=== PATIENT | female | born 1990 | race Caucasian/White ===

== ENCOUNTER 2016-09-27 08:43 | Emergency (ER) | payer OTHER, BC ==
[2016-09-27 08:58] VITALS: BMI 29.5
[2016-09-27] MEDS ORDERED: ONDANSETRON HCL 4 MG/2 ML VIAL IV ONE (09:00)
[2016-09-27] MEDS ORDERED: NS 1,000 ML IV ONE ×2 (09:00→11:19)
[2016-09-27] MEDS ORDERED: MORPHINE 4 MG/ML INJECTION IV ONE (09:00)
[2016-09-27 09:42] LABS: BLOOD UREA NITROGEN 13 MG/DL (7-17); CALCIUM 9.2 MG/DL (8.4-10.2); CALCULATED OSMOLALITY 276 MOs/Kg (270-290); CHLORIDE 107 mEq/L (98-107); GLUCOSE 119 MG/DL (70-99); SODIUM LEVEL 143 mEq/L (137-146); TOTAL PROTEIN 7.6 G/DL (6.3-8.2)
[2016-09-27 09:54] LABS: LEUKOCYTES/URINE NEG (NEGATIVE); NITRITE/URINE NEG (NEGATIVE); RBC/URINE 0-2 (0-5); URINE OCCULT BLOOD NEG (NEG/TRACE); WBC/URINE 0-2 (0-5)
[2016-09-27 09:54] LABS: SEG NEUTROPHIL 86 % (45-76)
--- NOTE | 2016-09-27 10:31 | EDPRACDOC ---
- General Information Chief Complaint: Flu-Like Symptoms Stated Complaint: DIARRHEA/ VOMITING Time Seen by Provider: 09/27/16 08:47 Information Source: Patient Mode Of Arrival: Car Home Medications: Home Medications HydrOXYzine HCl (Antihistamine [Atarax] 12.5 - 50 mg PO HS PRN 04/23/16 Lamotrigine [Lamictal] 200 mg PO DAILY 04/23/16 Sertraline HCl [Zoloft] 150 mg PO DAILY 04/23/16 Ciprofloxacin HCl [Cipro] 500 mg PO BID #20 tab 09/27/16 Ondansetron [Zofran Odt] 4 mg PO Q6H PRN #20 tab.rapdis 09/27/16 Oxycodone Immediate Release [Oxycodone Immediate Release (OxyIR)] 5 mg PO Q6H PRN #20 tab 09/27/16 Allergies/Adverse Reactions: Allergies Allergy/AdvReac Type Severity Reaction Status Date / Time cefazolin sodium [From Anc] Allergy Rash-Genera Verified 09/27/16 09:14 lized codeine Allergy See Verified 09/27/16 09:14 Comments erythromycin base Allergy See Verified 09/27/16 09:14 Comments - History of Present Illness Onset: 4 days HPI: PT PRESENTS WITH NAUSEA, VOMITING AND DIARRHEA FOR THE PAST 24 HOURS, STATES BEFORE THIS SHE HAD COUGH, NASAL SYMPTOMS AND FEVER. Symptoms Occured: Reports: Spontaneous Duration: Reports: Intermittent Emesis: Reports: Bilious Recent: Reports: Contact Exposure Pain Quality: Reports: Aching, Cramping Pain Severity: Moderate Pain Location: Reports: Diffuse : No History of: Reports: UTI Relevant History of: Denies: Abdominal Surgery, Diabetes, Contact Exposure, Hydrocephalus, HIV, Immunosuppression, Irritable Bowel Disease, Cystic Fibrosis , Lactose Intolerance, None, O Associated Signs & Symptoms: Reports: Nausea, Vomiting, Diarrhea Oral Intake: Decreased Urinary Output: Normal ED Past Medical History - History Reviewed Yes Nurses notes reviewed and agree except as marked - Patient Medical History GI/ History: Reports: Urinary Tract Infection, Kidney Stones Psychological History: Reports: Depression, Bipolar Disorder (BIPOLAR II) Surgical History: Reports: Appendectomy - Family Medical History Reports: Hypertension (MOTHER), Diabetes (MATERNAL GRANDFATHER), Cancer (FATHER) , Stroke (PATERNAL GRANDMOTHER). Denies: Cardiac Disorders - Social Medical History Smoking Status: Never smoker EDM Review of Systems - Review of Systems ROS Negative Except as Marked: Yes All systems reviewed and were negative except as marked - Physical Exam Constitutional: Alert. negative: Well appearing Oriented to: Time, Person, Place Last recorded Vital Signs: Last Vital Signs Temp 98.4 F 09/27/16 08:52 Pulse 116 09/27/16 08:52 Resp 18 09/27/16 08:52 BP 139/74 09/27/16 08:52 Pulse Ox 95 09/27/16 08:52 Oxygen Pulse Oxygen Saturation 95 O2 Device Room Air Oxygen Flow Rate Fraction of Inspired Oxygen ( FIO2) - HEENT Head: Normal ( normocephalic) Eye Exam: Pale Conjunctiva Oropharynx: Membranes Dry Tympanic Membrane: Normal Nose: No Symptoms Reported (septum midline) Neck: Normal (FROM, trachea at midline) - Respiratory/Cardiovascular Respiratory: Normal - CTA (BBS clear to auscultation without adventitious sounds ) Cardiovascular: Tachycardia - GI Auscultation: Normal (NABS) Palpation: Normal (Soft,No rebound or guarding, non distended) Tenderness: Diffuse, Mild Becker's Sign: Negative Rectal Exam: Deferred - Musculoskeletal Back: Normal (Non-Tender) Extremities: Normal (Normal tone, Pulses 2+ No cyanosis or edema, FROM) - Integumentary Skin: Normal, Warm, Dry Lymphatics: Normal (no adenopathy) - Neurologic Memory Impaired: Normal Motor Function: Normal (Normal tone, Pulses 2+ No cyanosis or edema, FROM) Cranial Nerve: Normal (CN II-X11 intact sensation, strength 5/5) Cerebellar: Normal Mood Description: Normal Perception: Normal - Differential Diagnosis Diarrhea Viral, Gastroenteritis - Results 09/27/16 09:15 09/27/16 09:15 WBC 20.9 xk/uL (3.8-10.8) H 09/27/16 09:15 RBC 5.52 xM/uL (4.20-5.40) H 09/27/16 09:15 Hgb 15.7 g/dL (12.0-16.0) 09/27/16 09:15 Hct 46.2 % (36-47) 09/27/16 09:15 MCV 84 fL (81-99) 09/27/16 09:15 MCH 28.4 pg (27-32) 09/27/16 09:15 MCHC 33.9 g/dl (33-36) 09/27/16 09:15 RDW 13.4 % (11.5-14.5) 09/27/16 09:15 Plt Count 334 xk/uL (130-400) 09/27/16 09:15 MPV 6.0 fL (7.4-10.4) L 09/27/16 09:15 Neut % (Auto) Cancelled 09/27/16 09:15 Lymph % (Auto) Cancelled 09/27/16 09:15 [place] % (Auto) Cancelled 09/27/16 09:15 Eos % (Auto) Cancelled 09/27/16 09:15 Baso % (Auto) Cancelled 09/27/16 09:15 Absolute Neuts (auto) Cancelled 09/27/16 09:15 Absolute Lymphs (auto) Cancelled 09/27/16 09:15 Seg Neuts % (Manual) 86 % (45-76) H 09/27/16 09:15 Band Neutrophils % 5 % (0-5) 09/27/16 09:15 Lymphocytes % (Manual) 5 % (17-44) L 09/27/16 09:15 Monocytes % (Manual) 4 % (0-10) 09/27/16 09:15 Absolute Neutrophils 19.02 xk/uL (1.7-8.2) H 09/27/16 09:15 Absolute Lymphocytes 1.05 xk/uL (0.65-4.75) 09/27/16 09:15 Platelet Estimate Norm (NORMAL) 09/27/16 09:15 RBC Morphology 1+ poik 1+ teardrop 09/27/16 09:15 RBC Morphology 1+ poik 1+ teardrop 09/27/16 09:15 Sodium 143 mEq/L (137-146) 09/27/16 09:15 Potassium 4.2 mEq/L (3.5-5.1) 09/27/16 09:15 Chloride 107 mEq/L (98-107) 09/27/16 09:15 Carbon Dioxide 21 mMOL/L (22-33) L 09/27/16 09:15 Anion Gap 19 mEq/L (8-16) H 09/27/16 09:15 BUN 13 MG/DL (7-17) 09/27/16 09:15 Creatinine 0.50 MG/DL (0.52-1.04) L 09/27/16 09:15 Estimated GFR (MDRD) > 60 mL/min (>=60) 09/27/16 09:15 Glucose 119 MG/DL (70-99) H 09/27/16 09:15 Calculated Osmolality 276 MOs/Kg (270-290) 09/27/16 09:15 Calcium 9.2 MG/DL (8.4-10.2) 09/27/16 09:15 Total Bilirubin 0.5 MG/DL (0.2-1.3) 09/27/16 09:15 AST 39 IU/L (14-36) H 09/27/16 09:15 ALT 33 IU/L (9-52) 09/27/16 09:15 Alkaline Phosphatase 103 IU/L (38-126) 09/27/16 09:15 Total Protein 7.6 G/DL (6.3-8.2) 09/27/16 09:15 Albumin 4.1 G/DL (3.5-5.0) 09/27/16 09:15 Lipase 34 U/L (23-300) 09/27/16 09:15 Urine Color Yellow 09/27/16 09:30 Urine Clarity Clear 09/27/16 09:30 Urine pH 5.0 (5.0-8.0) 09/27/16 09:30 Ur Specific [place] 1.005 (1.003-1.035) 09/27/16 09:30 Urine Protein Neg (NEG/TRACE) 09/27/16 09:30 Urine Glucose (UA) Neg (NEGATIVE) 09/27/16 09:30 Urine Ketones Neg (NEGATIVE) 09/27/16 09:30 Urine Occult Blood Neg (NEG/TRACE) 09/27/16 09:30 Urine Nitrite Neg (NEGATIVE) 09/27/16 09:30 Urine Bilirubin Neg (NEGATIVE) 09/27/16 09:30 Urine Urobilinogen <2.0 MG/DL (0-1) 09/27/16 09:30 Ur Leukocyte Esterase Neg (NEGATIVE) 09/27/16 09:30 Urine RBC 0-2 (0-5) 09/27/16 09:30 Urine WBC 0-2 (0-5) 09/27/16 09:30 Ur Epithelial Cells 1+ 09/27/16 09:30 Urine Bacteria Few (NEG/FEW) 09/27/16 09:30 Urine Mucus Sm amt (NEG/OCC) 09/27/16 09:30 Urine Test Neg (NEGATIVE) 09/27/16 09:30 Microbiology 09/27/16 09:15 Influenza Type A Antigen Screen - Final N/P - Naso/Pharyngeal NEGATIVE Please note: A NEGATIVE result does not exclude an influenza virus infection. It is a presumptive result and, if required, confirmation should be done using either a virus culture or an FDA-cleared influenza A&B molecular assay. ("NORMAL" value = "NEGATIVE".) Influenza Type B Antigen Screen - Final NEGATIVE Please note: A NEGATIVE result does not exclude an influenza virus infection. It is a presumptive result and, if required, confirmation should be done using either a virus culture or an FDA-cleared influenza A&B molecular assay. ("NORMAL" value = "NEGATIVE".) Lab Results 09/27/16 09/27/16 09/27/16 09:30 09:30 09:15 WBC RBC Hgb Hct MCV MCH MCHC RDW Plt Count MPV Neut % (Auto) Lymph % (Auto) [place] % (Auto) Eos % (Auto) Baso % (Auto) Absolute Neuts (auto) Absolute Lymphs (auto) Seg Neuts % (Manual) Band Neutrophils % Lymphocytes % (Manual) Monocytes % (Manual) Absolute Neutrophils Absolute Lymphocytes Platelet Estimate RBC Morphology Sodium 143 Potassium 4.2 Chloride 107 Carbon Dioxide 21 L Anion Gap 19 H BUN 13 Creatinine 0.50 L Estimated GFR (MDRD) > 60 Glucose 119 H Calculated Osmolality 276 Calcium 9.2 Total Bilirubin 0.5 AST 39 H ALT 33 Alkaline Phosphatase 103 Total Protein 7.6 Albumin 4.1 Lipase 34 Urine Color Yellow Urine Clarity Clear Urine pH 5.0 Ur Specific [place] 1.005 Urine Protein Neg Urine Glucose (UA) Neg Urine Ketones Neg Urine Occult Blood Neg Urine Nitrite Neg Urine Bilirubin Neg Urine Urobilinogen <2.0 Ur Leukocyte Esterase Neg Urine RBC 0-2 Urine WBC 0-2 Ur Epithelial Cells 1+ Urine Bacteria Few Urine Mucus Sm amt Urine Test Neg 09/27/16 09:15 WBC 20.9 H RBC 5.52 H Hgb 15.7 Hct 46.2 MCV 84 MCH 28.4 MCHC 33.9 RDW 13.4 Plt Count 334 MPV 6.0 L Neut % (Auto) Cancelled Lymph % (Auto) Cancelled [place] % (Auto) Cancelled Eos % (Auto) Cancelled Baso % (Auto) Cancelled Absolute Neuts (auto) Cancelled Absolute Lymphs (auto) Cancelled Seg Neuts % (Manual) 86 H Band Neutrophils % 5 Lymphocytes % (Manual) 5 L Monocytes % (Manual) 4 Absolute Neutrophils 19.02 H Absolute Lymphocytes 1.05 Platelet Estimate Norm RBC Morphology 1+ teardrop Sodium Potassium Chloride Carbon Dioxide Anion Gap BUN Creatinine Estimated GFR (MDRD) Glucose Calculated Osmolality Calcium Total Bilirubin AST ALT Alkaline Phosphatase Total Protein Albumin Lipase Urine Color Urine Clarity Urine pH Ur Specific [place] Urine Protein Urine Glucose (UA) Urine Ketones Urine Occult Blood Urine Nitrite Urine Bilirubin Urine Urobilinogen Ur Leukocyte Esterase Urine RBC Urine WBC Ur Epithelial Cells Urine Bacteria Urine Mucus Urine Test Decision Time to Discharge: 11:42 - Departure Disposition: Home Condition: Stable Final Diagnosis: Acute bronchitis Nausea & vomiting Qualifiers: Vomiting type: unspecified Vomiting Intractability: intractable Qualified Code( s): R11.2 - Nausea with vomiting, unspecified Instructions: Acute Bronchitis (ED), Acute Nausea and Vomiting (ED) Education/Counseling Given To: Patient Education/Counseling Given Regarding: Diagnosis, Treatment, Prognosis, Follow Up Referrals: Yumiko Lynn MD [Primary Care Provider] - One Week Prescriptions: Ciprofloxacin HCl [Cipro] 500 mg PO BID #20 tab Ondansetron [Zofran Odt] 4 mg PO Q6H PRN #20 tab.rapdis PRN Reason: Nausea/Vomiting Oxycodone Immediate Release [Oxycodone Immediate Release (OxyIR)] 5 mg PO Q6H PRN #20 tab PRN Reason: Pain Forms: Excuse Note Additional Instructions: INCREASE FLUID INTAKE. FOLLOW UP WITH PRIMARY CARE PROVIDER NEXT WEEK. TAKE ALL ANTIBIOTICS PRESCRIBED. RETURN TO THE ED FOR WORSENING SYMPTOMS OR CONCERNS.
--- NOTE | 2016-09-27 10:41 | DIRPT ---
CLINICAL DATA: 25-year-old female with history of coughing and vomiting. Cough productive of clear sputum. EXAM: CHEST 2 VIEW COMPARISON: Chest x-ray 04/23/2016. FINDINGS: Mild diffuse peribronchial cuffing. Lung volumes are normal. No consolidative airspace disease. No pleural effusions. No pneumothorax. No pulmonary nodule or mass noted. Pulmonary vasculature and the cardiomediastinal silhouette are within normal limits. IMPRESSION: 1. Mild diffuse peribronchial cuffing, suggesting an acute bronchitis. Electronically Signed By: Drew Zhnog M.D. On: 09/27/2016 10:39
[2016-09-27] MEDS ORDERED: Pharmacy Review for Metformin - IV Contrast Given SCH (11:00)
[2016-09-27] MEDS ORDERED: ACETAMINOPHEN 325 MG/TAB TABLET PO ONE (11:19)
--- NOTE | 2016-09-27 11:38 | DIRPT ---
CLINICAL DATA: Abdominal pain with nausea, vomiting, and diarrhea. EXAM: CT ABDOMEN AND PELVIS WITH CONTRAST TECHNIQUE: Multidetector CT imaging of the abdomen and pelvis was performed using the standard protocol following bolus administration of intravenous contrast. CONTRAST: 100 cc Isovue 370 COMPARISON: CT scan dated 10/30/2010 FINDINGS: Lower chest: Minimal scarring at the left lung base. Hepatobiliary: Normal. Pancreas: Normal. Spleen: Normal. Adrenals/Urinary Tract: Normal. Stomach/Bowel: Normal. Vascular/Lymphatic: Normal. Reproductive: Normal. Other: No free air or free fluid. Musculoskeletal: Normal. IMPRESSION: Benign-appearing abdomen and pelvis. Electronically Signed By: Keron Allen M.D. On: 09/27/2016 11:36
[2016-09-27] MEDS ORDERED: CIPROFLOXACIN HCL 500 MG TAB PO ONE (11:45)
[2016-09-27] MEDS ORDERED: OXYCODONE HCL 5 MG TABLET PO ONE (11:45)
[2016-09-27] MEDS ORDERED: ONDANSETRON HCL 4 MG ODT TAB PO ONE (11:45)
[2016-09-27 13:12] VITALS: BP 114/57; PULSE 118; TEMP 99.9
== END 2016-09-27 13:08 | disposition home or self-care (01) ==
LOC: ED 08:43
DX: J20.9 Acute bronchitis, unspecified (principal); R11.2 Nausea with vomiting, unspecified; R10.9 Unspecified abdominal pain
CPT/HCPCS: 36415; 71020; 74177; 80053; 81001; 81025; 83690; 85007; 85027; 87804; 96361; 96374; 96375; 99284; A9698; J2270; J2405; J3490